=== PATIENT | female | born 1955 | race Caucasian/White ===

== ENCOUNTER → 2021-11-30 | Outpatient (CLI) | payer MEDICARE, OTHER ==
--- NOTE | 2021-12-01 01:54 | MR ---
EXAMINATION TYPE: MR brain wo/w con DATE OF EXAM: 11/30/2021 COMPARISON: 12/09/2017 HISTORY: Benign neoplasm of cerebral meninges, seizures. CONTRAST: Standard multiplanar, multisequence MRI departmental protocol images were obtained without contrast a nd with 5.5 mL intravenous Gadavist gadolinium contrast. Diffusion images show no evidence of an acute infarct. Ventricles have fairly normal size. There is n o mass effect or midline shift. No sign of intracranial hemorrhage. Corpus callosum appears intact. N o evidence of a sellar mass. The brainstem is intact. No evidence of orbital mass. There is a 2 cm rounded mixed signal lesion within the medial right temporal lobe. The lesion appears to have hemosiderin ring. The lesion does not appear to show any significant enhancement. IMPRESSION: Sharply marginated rounded right temporal lobe mass that appears to be containing some old hemorrhage and is hypovascular. Mass is likely intra-axial. 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 The size is not changed compared to the old exam 4 years ago. This is consistent with benign di sease. No other lesion identified.
== END | disposition home or self-care (01) ==
LOC: RADMRIMAIN 18:08
PROVIDERS: ATTEND Psychiatry & Neurology Neurology
DX: D32.0 Benign neoplasm of cerebral meninges (principal)
CPT/HCPCS: 70553; A9585

== ENCOUNTER → 2023-01-03 | Outpatient (CLI) | payer MEDICARE ==
--- NOTE | 2023-01-03 12:23 | MR ---
EXAMINATION TYPE: MR brain wo/w con DATE OF EXAM: 01/03/2023 COMPARISON: 12/11/2017, 11/30/2021 HISTORY: Seizures, intracranial meningioma TECHNIQUE: Multiplanar, multisequence images of the brain and brainstem is performed without and with IV contras t, utilizing 5.5 mL intravenous Gadavist . FINDINGS: Diffusion weighted images demonstrate no evidence of a recent infarct or other diffusion ab normality. There is mild generalized degenerative change with no midline shift or mass effect. There remains a 1.7 cm mixed signal lesion involving the right temporal lobe which is demonstrated th e partially calcified by prior CT scan. Hemosiderin ring may suggest calcification or prior hemorrhag e. Difficult to confirm that this is extra-axial. It is stable dating back to CT scan of 2017 and [place] sn't appear to result in some mass effect upon the temporal lobe. Midline structures demonstrate normal morphology. The craniocervical junction appears within normal limits. Post contrast images demonstrate the dural venous sinuses appear patent. Mild chronic ethmoi rashard sinusitis and the globes are intact. IMPRESSION: 1. There is a right temporal lobe partially calcified mass also contains a hemosiderin ring suggestiv e of prior remote hemorrhage. Cannot confirm this is extra-axial as suggested by the history of menin gioma. Differential diagnosis besides meningioma would also include intra-axial lesion such as an cav ernous angioma or less likely oligodendroglioma. The findings are stable dating back to multiple prio r exams
== END | disposition home or self-care (01) ==
LOC: RADMRIMAIN 10:26
PROVIDERS: ATTEND Family Medicine
DX: D32.0 Benign neoplasm of cerebral meninges (principal)
CPT/HCPCS: 70553; A9585